=== PATIENT | male | born 1975 | race Caucasian/White ===

== ENCOUNTER 2016-05-13 03:24 | Emergency (ER) | payer OTHER ==
--- NOTE | ~2016-05-13 | CT4 ---
[facility] A Service of [facility] RADIOLOGY TEXT RESULTS PATIENT: ANGEL BARRETT LOCATION: SED : 73 UNIT #: [id number] AGE: [address]: Paresh Berrios MD SEX: M ORDER DR: [id number] [place] [id number] E MR#: [id number] Acc #: [id number] NAME: ANGEL BARRETT : 1975 SEX: M STUDY DATE/TIME: 05/13/2016 3:36 UNIT: SED ROOM: STUDY DESCRIPTION: CT Abd and Pelv Wo Cont Attending Physician: Paresh Berrios M.D. Ordering Physician: Paresh Berrios M.D. Primary Care Physician: No Primary Care Physician MEDICAL IMAGING REPORT This report is preliminary unless electronic signature is present. EXAM CT abdomen and pelvis without contrast DATE 05/13/2016 HISTORY Left flank pain beginning at 2200 p.m. tonight. Difficulty urinating. Pain with urination. History of kidney stones. COMPARISON CT abdomen and pelvis without contrast 09/10/2012. PROCEDURE 3 mm noncontrast axial images through the abdomen and pelvis. Enteric contrast was not administered. TECHNIQUE This CT exam was performed with one or more of the following radiation dose reduction techniques: automatic control, adjustment of mA and/or kV according to patient size, and iterative reconstruction. FINDINGS ABDOMEN FINDINGS: A 4 mm stone is seen within the urinary bladder lumen to the left of midline just past the ureterovesical junction thought to represent a recently passed stone. There is mild left hydronephrosis and hydroureter. Small nonobstructing bilateral intrarenal calculi are present. Small bilateral renal cysts are present. Lung bases are free of consolidation. The noncontrast appearance of liver, gallbladder, spleen, pancreas, and adrenal glands is within normal limits. Unopacified bowel grossly unremarkable. Tiny umbilical hernia containing only fat. [facility] A Service of [facility] RADIOLOGY TEXT RESULTS PATIENT: ANGEL BARRETT LOCATION: SED : 74 UNIT #: [id number] AGE: [address]: Paresh Berrios MD SEX: M ORDER DR: IMPRESSION 1. 4 mm stone in the urinary bladder to the left of midline which appears to project at or just past ureterovesical junction, resulting in mild left hydronephrosis and hydroureter. 2. Nonobstructing bilateral intrarenal calculi. 3. Bilateral renal cysts. Dictated by... Imani Chao M.D. THIS IS AN ELECTRONICALLY VERIFIED REPORT Imani Chao M.D. at 05/14/2016 9:58 PM CORWIN/agatha TD: 05/13/2016 22:51 JOB #: [id number] MEDICAL IMAGING REPORT
[~2016-05-13 03:24] MED LIST: AMOXICILLIN500 M1 PO; BACTRIM DS TABL1 TA2 PO; FLOMAX0.4 M1 PO; IBUPROFEN800 MG PO; KEFLEX500 M1 PO; MOBIC PO; NO MEDICATIONS; PERCOCET5/325 PO; PHENERGAN PR; PHENERGAN25 MG PO; VICODIN 5/1 TAB 5/50 PO; VICODIN PO
[2016-05-13 03:42] LABS: BASOPHIL% 0.2 % (0-2.5); DIFF IND NO; EOSINOPHIL# 0.1 X10e3 (0-0.7); EOSINOPHIL% 0.8 % (0.0-7.0); HEMATOCRIT 40.5 % (38.0-50.0); HEMOGLOBIN 13.4 gm/dL (13.0-16.0); LYMPHOCYTE# 1.8 X10e3 (1.0-3.5); LYMPHOCYTE% 18.6 % (17.0-45.0); MEAN CELL VOLUME 86.4 FL (83-96); MEAN CORPUSCULAR HEMOGLOBIN 28.7 PG (28-34); MEAN CORPUSCULAR HGB CONC 33.2 g/dL (30-36); MEAN PLATELET VOLUME 7.9 FL (6.5-11.5); MONOCYTE# 1.3 X10e3 (0-1.0); MONOCYTE% 13.2 % (3.0-12.0); NEUTROPHIL# 6.5 X10e3 (1.5-7.1); NEUTROPHIL% 67.2 % (40-75); PLATELET COUNT 164 X10e3 (140-420); RED BLOOD COUNT 4.68 X10e (3.90-5.60); RED CELL DISTRIBUTION WIDTH 14.3 % (11.0-15.5); WHITE BLOOD COUNT 9.6 X10e3 (4.0-10.5)
[2016-05-13 03:51] LABS: ALBUMIN SERUM 4.2 g/dL (3.5-5.0); ALKALINE PHOSPHATASE 62 U/L (32-92); ALT (SGPT) 21 U/L (10-40); AST (SGOT) 26 U/L (10-42); BILIRUBIN, DIRECT <0.1 mg/dL (0.0-0.2); BILIRUBIN,INDIRECT 0.4 mg/dL (0.0-0.9); BILIRUBIN,TOTAL 0.5 mg/dL (0.2-2.0); BLOOD UREA NITROGEN 17 mg/dL (9-23); BUN/CREATININE RATIO 11.33; CARBON DIOXIDE 26 mmol/L (22-31); CHLORIDE 101 mmol/L (100-111); CREATININE SERUM 1.5 mg/dL (0.6-1.4); GLOM FILT RATE Estimated 54.8 mL/min (>60); GLUCOSE FASTING 102 mg/dL (70-110); LIPASE 19 U/L (22-51); POTASSIUM 3.3 mmol/L (3.5-5.1); PROTEIN TOTAL SERUM 7.2 g/dL (6.0-8.3); SODIUM 135 mmol/L (135-145)
[2016-05-13 03:56] LABS: URINE SOURCE CLEAN CATCH
[2016-05-13 03:58] LABS: URINE APPEARANCE CLEAR; URINE BILIRUBIN NEG (NEG); URINE BLOOD 3+ (NEG); URINE COLOR YELLOW; URINE GLUCOSE NEG (NORM); URINE KETONE TRACE (NEG); URINE LEUKOCYTE ESTERASE NEG (NEG); URINE NITRATE NEG (NEG); URINE PH 5.5 (5-8); URINE PROTEIN NEG (NEG); URINE SPECIFIC GRAVITY 1.015 (1.003-1.035); URINE UROBILINOGEN 0.2 MG/DL (NORM)
[2016-05-13 03:59] LABS: MICRO INDICATED? YES
[2016-05-13 04:03] LABS: CULTURE INDICATED? NO; URINE BACTERIA NEG (NEG); URINE RBC 50-100 /[HPF] (0-2)
[2016-05-13 04:04] LABS: URINE CRYSTALS CALCIUM OXALATE /[HPF]; URINE MUCUS PRESENT; URINE SQUAMOUS EPITHELIAL CELL OCCAS /[HPF]
== END 2016-05-13 04:31 | disposition home or self-care (01) ==
LOC: SED 03:24
PROVIDERS: Emergency Medicine
DX: N13.2 Hydronephrosis with renal and ureteral calculous obstruction (principal); Z87.442 Personal history of urinary calculi; Z98.890 Other specified postprocedural states
CPT/HCPCS: 36415; 74176; 80048; 80076; 81003; 83690; 85025; 96374; 96375; 99284; J1885; J2405